=== PATIENT | female | born 1990 | race Caucasian/White ===

== ENCOUNTER 2023-04-22 12:26 | Emergency (ER) | payer SELFPAY ==
[~2023-04-22] VITALS: Ht 157.5 cm; Wt 55.0 kg
[2023-04-22] MEDS ORDERED: HALOPERIDOL LACTATE 5MG/ML VIAL IM STA (13:08)
[2023-04-22] MEDS ORDERED: LORAZEPAM 2MG/ML CPJ IM STA (13:08)
[2023-04-22] MEDS ORDERED: DIPHENHYDRAMINE 50MG/ML VIAL IM ONE (13:15)
[2023-04-22 13:40] LABS: HEMATOCRIT. 31.4 % (36.0-48.0); HEMOGLOBIN. 10.8 g/dL (12.0-16.0); MEAN CORPUSCULAR HEMOGLOBIN 29.5 pg (28.0-32.0); MEAN CORPUSCULAR VOLUME 85.6 fL (81.0-99.0); MEAN PLATELET VOLUME 7.3 fl (7.4-10.4); PLATELET 542 x1000/uL (130-400); RED BLOOD CELL COUNT 3.67 mill/uL (4.2-5.4); RED CELL DISTRIBUTION WIDTH 15.6 % (11.6-14.6)
[2023-04-22 13:47] LABS: CHLORIDE 109 mEq/L (98-107)
[2023-04-22 13:56] LABS: ETHANOL BLOOD < 10 mg/dL (-10)
[2023-04-22] MEDS ORDERED: SODIUM CHLORIDE 0.9% 1,000 ML IV ONE (14:00)
[2023-04-22 14:27] LABS: PLATELET ESTIMATE INCREASED
[2023-04-22 14:40] LABS: *BARBITURATES SCREEN URINE NEGATIVE (NEGATIVE); *BENZODIAZEPINES SCREEN URINE NEGATIVE (NEGATIVE); *COCAINE SCREEN URINE NEGATIVE (NEGATIVE); CANNABINOID URINE SCREEN NEGATIVE (NEGATIVE); METHADONE URINE SCREEN NEGATIVE (NEGATIVE); OPIATES URINE SCREEN NEGATIVE (NEGATIVE); PHENCYCLIDINE URINE SCREEN NEGATIVE (NEGATIVE)
[2023-04-22 14:47] LABS: *AMPHETAMINES SCREEN URINE PRESUMTIVE POSITIVE (NEGATIVE)
[2023-04-22 16:30] VITALS: O2SAT 99
[2023-04-23] MEDS ORDERED: LORAZEPAM 2MG/ML CPJ IM ONE (02:15)
[2023-04-24] MEDS ORDERED: LORAZEPAM 2MG/ML CPJ IM STA (06:34)
[2023-04-24] MEDS ORDERED: OLANZAPINE 10 MG/VIAL IM ONE (06:45)
[2023-04-25 09:16] VITALS: BP 111/78; PULSE 105; RESP 18; TEMP 98.1
== END 2023-04-25 09:57 | disposition home or self-care (01) ==
LOC: ER 12:34
DX: R45.1 Restlessness and agitation (principal); F15.10 Other stimulant abuse, uncomplicated
CPT/HCPCS: 80053; 80305; 80307; 80329; 80320; 85025; 36415; 96372 ×2; 99291; J1200; J1630; J2060 ×3; J7030; Z7610; J3490; G0480